=== PATIENT | male | born 1980 | race Caucasian/White ===

== ENCOUNTER 2020-07-24 15:20 | Emergency (ER) | payer OTHER ==
[~2020-07-24] VITALS: Ht 177.8 cm; Wt 108.9 kg
== END 2020-07-24 16:37 | disposition home or self-care (01) ==
LOC: ER 15:20
DX: M25.562 Pain in left knee (principal)
CPT/HCPCS: 73562-LT; 99283-25

== ENCOUNTER 2020-12-19 04:25 | Emergency (ER) | payer OTHER ==
[2020-12-19 08:30] LABS: Calcium, Ionized (POC) 1.02 mmol/L (1.10-1.46); Chloride (POC) 107 mmol/L (98-108); Creatinine (POC) 1.4 mg/dL (0.8-1.3); Glucose (ISTAT POC) 240 mg/dL (70-99); Hemoglobin (POC) 11.9 g/dL (13.5-17.5); Potassium (POC) 3.7 mmol/L (3.5-5.5); Sodium (POC) 144 mmol/L (135-148); Total CO2 (POC) 20 mmol/L (21-32)
== END 2020-12-19 09:15 ==
LOC: ER 04:25
PROVIDERS: Emergency Medicine
DX: I46.9 Cardiac arrest, cause unspecified (principal)
CPT/HCPCS: 31500; 36415; 80047; 85014; 92950; 92977; 96374-59; 96375; 96375-59; 99285-25; J2997